=== PATIENT | female | born 1995 | race Caucasian/White ===

== ENCOUNTER 2017-09-19 20:57 | Emergency (ER) | payer OTHER ==
[2017-09-19 21:08] VITALS: RESP 18; TEMP 97.1
[2017-09-19] MEDS ORDERED: Sodium Chloride 0.9% 1,000 ML IV STA (21:16)
--- NOTE | 2017-09-19 21:21 | ED PDOC ---
Arrival/HPI - General Chief Complaint: Abdominal Pain Time Seen by Provider: 09/19/17 21:16 Historian: Patient - History of Present Illness Narrative History of Present Illness (Text): 09/19/17 21:17 22yo female who present with complaint of suprapubic abdominal pain x 2days. Stats pain is increasingly getting worse. Notes that she is currently 3months and sees OB. She denies nausea, vomiting, diarrhea, vaginal bleeding, urinary symptoms, fever. Past Medical History - Provider Review Nursing Documentation Reviewed: Yes - Psychiatric Hx Substance Use: No Family/Social History - Physician Review Nursing Documentation Reviewed: Yes Family/Social History: Unknown Family HX Smoking Status: Never Smoked Hx Alcohol Use: No Hx Substance Use: No Allergies/Home Meds Allergies/Adverse Reactions: Allergies No Known Allergies Allergy (Verified 09/19/17 21:08) Home Medications: Home Meds Medication Instructions Recorded Confirmed No Known Home Med 09/19/17 09/19/17 Review of Systems - Physician Review All systems were reviewed & negative as marked: Yes - Review of Systems Constitutional: Normal Eyes: Normal ENT: Normal Respiratory: Normal Cardiovascular: Normal Gastrointestinal: Abdominal Pain. absent: Constipation, Diarrhea, Nausea, Vomiting, Hematochezia, Hematemesis Genitourinary Female: Normal Musculoskeletal: Normal Skin: Normal Neurological: Normal Endocrine: Normal Hemo/Lymphatic: Normal Psychiatric: Normal Physical Exam Vital Signs Temp Pulse Resp BP Pulse Ox 09/19/17 23:40 97 H 18 126/82 100 09/19/17 21:03 97.1 F L 98 H 18 122/77 99 Temperature: Afebrile Blood Pressure: Normal Pulse: Regular Respiratory Rate: Normal Appearance: Positive for: Well-Appearing, Non-Toxic, Comfortable Pain Distress: None Mental Status: Positive for: Alert and Oriented X 3 - Systems Exam Head: Present: Atraumatic, Normocephalic Pupils: Present: PERRL Extroacular Muscles: Present: EOMI Conjunctiva: Present: Normal Mouth: Present: Moist Mucous Membranes Neck: Present: Normal Range of Motion Respiratory/Chest: Present: Clear to Auscultation, Good Air Exchange. No: Respiratory Distress, Accessory Muscle Use Cardiovascular: Present: Regular Rate and Rhythm, Normal S1, S2. No: Murmurs Abdomen: Present: Tenderness (Suprapubic tenderness), Normal Bowel Sounds, Other (soft). No: Distention, Peritoneal Signs, Rebound, Guarding, McBurney's Point Tender, Rovsing's Sign Present Back: Present: Normal Inspection Upper Extremity: Present: Normal Inspection. No: Cyanosis, Edema Lower Extremity: Present: Normal Inspection. No: Edema Neurological: Present: GCS=15, CN II-XII Intact, Speech Normal Skin: Present: Warm, Dry, Normal Color. No: Rashes Psychiatric: Present: Alert, Oriented x 3, Normal Insight, Normal Concentration Medical Decision Making ED Course and Treatment: 09/20/17 01:08 PT in ED for stated . She was not lethargic, hemodynamically stable. [place] [address].00 was noted Transvaginal US IMPRESSION: 1. Findings suspicious but not diagnostic of failure. Short-term sonographic followup is recommended. 2. RIGHT ovarian cyst. Result was DW both pt and the . The states pt have appointment with her OB on Thursday. A copy of her US and lab with beta was given. She was advised to f/u with the OB for a repeat beta. - Lab Interpretations Lab Results: 09/19/17 21:30 09/19/17 21:30 Lab Results 09/19/17 21:30: Beta HCG, Quant [id number] H 09/19/17 21:30: Sodium 142, Potassium 3.6, Chloride 103, Carbon Dioxide 24, Anion Gap 19, BUN 17, Creatinine 0.7, Est GFR ( Amer) > 60, Est GFR (Non- Af Amer) > 60, Random Glucose 95, Calcium 10.0, Total Bilirubin 0.2, AST 26, ALT 26, Alkaline Phosphatase 64, Total Protein 8.5 H, Albumin 4.5, Globulin 4.0 , Albumin/Globulin Ratio 1.1 09/19/17 21:30: Urine Color Yellow, Urine Appearance Clear, Urine pH 7.0, Ur Specific Dennis 1.020, Urine Protein Negative, Urine Glucose (UA) Negative, Urine Ketones Negative, Urine Blood Large H, Urine Nitrate Negative, Urine Bilirubin Negative, Urine Urobilinogen 0.2, Ur Leukocyte Esterase Trace H, Urine RBC 10 - 15, Urine WBC 1 - 3, Ur Epithelial Cells 4 - 5, Urine Bacteria Many, Urine Other Uyeast, Urine HCG, Qual Positive 09/19/17 21:30: PT 11.7, INR 1.03, APTT 32.0 09/19/17 21:30: WBC 12.6 H, RBC 4.34, Hgb 12.8, Hct 37.9, MCV 87.3, MCH 29.5, MCHC 33.8, RDW 13.8, Plt Count 270, MPV 11.6 H, Gran % 55.9, Lymph % (Auto) 35.9 H, Baldwin % (Auto) 6.3 H, Eos % (Auto) 1.5, Baso % (Auto) 0.4, Gran # 7.04 H , Lymph # (Auto) 4.5 H, Baldwin # (Auto) 0.8 H, Eos # (Auto) 0.2, Baso # (Auto) 0.05 - RAD Interpretation Radiology Orders: 09/19/17 22:25 OB TRANSVAGINAL [US] Stat - Medication Orders Current Medication Orders: Discontinued Medications Sodium Chloride (Sodium Chloride 0.9%) 1,000 mls @ 999 mls/hr IV .Q1H1M STA Stop: 09/19/17 22:16 Last Admin: 09/19/17 21:33 Dose: 999 mls/hr eMAR Start Stop Document 09/19/17 21:33 AD (Rec: 09/19/17 21:33 AD [id number]) Intravenous Solution Start Date 09/19/17 Start Time 21:33 Disposition/Present on Arrival - Present on Arrival Any Indicators Present on Arrival: No History of DVT/PE: No History of Uncontrolled Diabetes: No Urinary Catheter: No History of Decub. Ulcer: No History Surgical Site Infection Following: None - Disposition Have Diagnosis and Disposition been Completed?: Yes Diagnosis: Threatened Disposition: HOME/ ROUTINE Disposition Time: 11:25 Patient Plan: Discharge Condition: STABLE Discharge Instructions (ExitCare): Threatened Miscarriage Additional Instructions: Follow up with your OB in 48hrs for a repeat beta Return to ED for any new or worsening symptoms Referrals: Samanta Taylor MD [Primary Care Provider] - Follow up with primary Al Gottlieb MD [Staff Provider] - Follow up with primary Forms: [employer] (Ukrainian)
[2017-09-19 21:47] LABS: HCG,QUALITATIVE URINE POSITIVE (NEGATIVE); URINE BILIRUBIN NEGATIVE (NEGATIVE); URINE BLOOD LARGE (NEGATIVE); URINE GLUCOSE (UA) NEGATIVE (NEGATIVE); URINE LEUKOCYTE ESTERASE TRACE Leu/uL (NEGATIVE); URINE NITRATE NEGATIVE (NEGATIVE); URINE PROTEIN NEGATIVE mg/dL (<30 mg/dL); URINE UROBILINOGEN 0.2 E.U./dL (<1 E.U./dL)
[2017-09-19 21:48] LABS: URINE APPEARANCE CLEAR (CLEAR); URINE COLOR YELLOW (YELLOW)
[2017-09-19 21:49] LABS: BASO # 0.05 K/mm3 (0.0-2.0); BASO % 0.4 % (0.0-3.0); EOS # 0.2 (0.0-0.7); EOS % 1.5 % (1.5-5.0); GRAN # 7.04 (1.4-6.5); GRAN % 55.9 % (50.0-68.0); HEMOGLOBIN 12.8 g/dL (12.0-16.0); LYMPH # 4.5 (1.2-3.4); LYMPH % 35.9 % (22.0-35.0); MEAN CELL VOLUME 87.3 fl (80.0-105.0); MEAN CORPUSCULAR HEMOGLOBIN 29.5 pg (25.0-35.0); MEAN CORPUSCULAR HGB CONC 33.8 g/dl (31.0-37.0); MEAN PLATELET VOLUME 11.6 fl (7.0-11.0); MONO # 0.8 (0.1-0.6); MONO % 6.3 % (1.0-6.0); RBC 4.34 10^6/uL (3.5-6.1); RED CELL DISTRIBUTION WIDTH 13.8 % (11.5-14.5); WHITE BLOOD COUNT 12.6 10^3/ul (4.5-11.0)
[2017-09-19 21:55] LABS: URINE BACTERIA MANY (NEG)
[2017-09-19 21:57] LABS: INR 1.03 (0.93-1.08); PROTHROMBIN TIME 11.7 SECONDS (9.4-12.5)
[2017-09-19 22:00] LABS: ALB/GLOB RATIO 1.1 (1.1-1.8); ALBUMIN 4.5 g/dL (3.0-4.8); ALT/SGPT 26 U/L (7-56); AST/SGOT 26 U/L (14-36); BLOOD UREA NITROGEN 17 mg/dL (7-21); GFR AFRICAN-AMERICAN > 60; GFR NON-AFRICAN AMERICAN > 60
--- NOTE | 2017-09-19 23:21 | US ---
EXAM: US First Trimester, Transabdominal CLINICAL HISTORY: 22 years old, female; Signs and symptoms; Lmp or gestational age (in weeks): 06/14/17; Other: Pelvic pain; ; Additional info: Abdominal pain TECHNIQUE: Real-time transabdominal obstetrical ultrasound of the maternal pelvis and a first trimester with image documentation. COMPARISON: No relevant prior studies available. FINDINGS: Gestation: Gestational sac. Yolk sac. pole. No heartbeat detected. Wheeling-rump length of 0.5 cm, correlating with gestational age of 6 weeks 1 day. Mean sac diameter of 2.1 cm, correlating with gestational age of 6 weeks 4 days. Uterus/cervix: No subchorionic hemorrhage. No cervical dilatation or effacement. Ovaries: RIGHT ovary: 2.9 x 2.4 x 2.7 cm anechoic lesion. LEFT ovary: Normal. No adnexal masses. Free fluid: No significant free fluid. IMPRESSION: 1. Findings suspicious but not diagnostic of failure. Short-term sonographic followup is recommended. 2. RIGHT ovarian cyst. EXAM: US , Transvaginal CLINICAL HISTORY: 22 years old, female; Signs and symptoms; Lmp or gestational age (in weeks): 06/14/17; Other: Pelvic pain; ; Additional info: Abdominal pain TECHNIQUE: Real-time transvaginal obstetrical ultrasound of the maternal pelvis and a first trimester with image documentation. Transvaginal imaging was used for better evaluation of the fetus and adnexa. COMPARISON: No relevant prior studies available. FINDINGS: Gestation: Gestational sac. Yolk sac. pole. No heartbeat detected. Wheeling-rump length of 0.5 cm, correlating with gestational age of 6 weeks 1 day. Mean sac diameter of 2.1 cm, correlating with gestational age of 6 weeks 4 days. Uterus/cervix: No subchorionic hemorrhage. No cervical dilatation or effacement. Ovaries: RIGHT ovary: 2.9 x 2.4 x 2.7 cm anechoic lesion. LEFT ovary: Normal. No adnexal masses. Free fluid: No significant free fluid.
[2017-09-20 00:09] VITALS: BP 126/82; PULSE 97; O2SAT 100
== END 2017-09-19 23:45 | disposition home or self-care (01) ==
LOC: ED 20:57
DX: O20.0 Threatened abortion (principal); Z3A.01 Less than 8 weeks gestation of pregnancy
CPT/HCPCS: 76817; 80053; 81001; 84702; 84703; 85025; 85610; 85730; 99283; J7040

== ENCOUNTER 2018-06-20 01:57 | Emergency (ER) | payer OTHER ==
[2018-06-20 02:06] VITALS: BMI 29.1
[2018-06-20 02:07] VITALS: RESP 18; TEMP 98.7
--- NOTE | 2018-06-20 02:17 | ED PDOC ---
Arrival/HPI - General Chief Complaint: Headache Time Seen by Provider: 06/20/18 02:00 Historian: Patient - History of Present Illness Narrative History of Present Illness (Text): 06/20/18 02:16 Patricia Chou is a 23 year old female, whose past medical history includes anemia, currently 8 months , who presents to the emergency department complaining of right-sided headache for the past 3 days. Patient also reports 1 episode of epistaxis yesterday, which resolved on its own. Patient states she has not taken any medication for pain at home. Patient denies any dizziness, vision changes, focal deficits, nausea, vomiting, neck pain, back pain, abdominal pain, urinary symptoms, or any other complaints. Symptom Onset: Gradual Symptom Course: Unchanged Activities at Onset: Light Context: Home Past Medical History - Provider Review Nursing Documentation Reviewed: Yes - Infectious Disease Hx of Infectious Diseases: None - Hematological/Oncological Hx Anemia: Yes - Psychiatric Hx Substance Use: No Family/Social History - Physician Review Nursing Documentation Reviewed: Yes Family/Social History: Unknown Family HX Smoking Status: Never Smoked Hx Alcohol Use: No Hx Substance Use: No Allergies/Home Meds Allergies/Adverse Reactions: Allergies No Known Allergies Allergy (Verified 09/19/17 21:08) Home Medications: Home Meds Medication Instructions Recorded Confirmed No Known Home Med 09/19/17 06/20/18 Review of Systems - Physician Review All systems were reviewed & negative as marked: Yes - Review of Systems Constitutional: Normal. absent: Fevers Eyes: Normal ENT: Epistaxis Respiratory: Normal. absent: SOB Cardiovascular: Normal. absent: Chest Pain Gastrointestinal: Normal. absent: Abdominal Pain, Diarrhea, Nausea, Vomiting Genitourinary Female: Normal. absent: Dysuria, Frequency, Hematuria, Urine Output Changes Musculoskeletal: Normal. absent: Back Pain, Neck Pain Skin: Normal. absent: Rash Neurological: Headache. absent: Dizziness Endocrine: Normal Hemo/Lymphatic: Normal Psychiatric: Normal Physical Exam Vital Signs Reviewed: Yes Vital Signs Temp Pulse Resp BP Pulse Ox 06/20/18 02:06 98.7 F 103 H 18 107/65 97 Temperature: Afebrile Blood Pressure: Normal Pulse: Regular Respiratory Rate: Normal Appearance: Positive for: Well-Appearing, Non-Toxic, Comfortable Pain Distress: None Mental Status: Positive for: Alert and Oriented X 3 - Systems Exam Head: Present: Atraumatic, Normocephalic Pupils: Present: PERRL Extroacular Muscles: Present: EOMI Conjunctiva: Present: Normal Ears: Present: Normal, NORMAL TM, Normal Canal. No: Erythema, TM Bulging, Fluid, TM Perf Mouth: Present: Moist Mucous Membranes Pharnyx: Present: Normal. No: ERYTHEMA, EXUDATE, TONSILS ENLARGED, Peritonsilar Swelling, Uvular Deviation, Muffled/Hoarse Voice, Strider, Soft Palate/Uvular Edema Nose (External): Present: Atraumatic Nose (Internal): Present: Normal Inspection Neck: Present: Normal Range of Motion. No: Meningeal Signs, MIDLINE TENDERNESS, Paraspinal Tenderness Respiratory/Chest: Present: Clear to Auscultation, Good Air Exchange. No: Respiratory Distress, Accessory Muscle Use Cardiovascular: Present: Regular Rate and Rhythm, Normal S1, S2. No: Murmurs Abdomen: No: Tenderness, Distention, Peritoneal Signs Back: Present: Normal Inspection Upper Extremity: Present: Normal Inspection. No: Cyanosis, Edema Lower Extremity: Present: Normal Inspection. No: Edema Neurological: Present: GCS=15, CN II-XII Intact, Speech Normal Skin: Present: Warm, Dry, Normal Color. No: Rashes Psychiatric: Present: Alert, Oriented x 3, Normal Insight, Normal Concentration Medical Decision Making ED Course and Treatment: 06/20/18 02:16 Impression: 23 year old female complaining of headache x3 days. Plan: -- Tylenol -- Reassess and disposition Progress Notes: 06/20/18 03:05 On reevaluation the patient feels better and is in no acute distress. Patient is stable for discharge. Patient was instructed to follow up with physician/clinic in 1-2 days or return if symptoms persist/worsen or new concerning symptoms arise.. - Scribe Statement The provider has reviewed the documentation as recorded by the Scribe Asia Quesada All medical record entries made by the Scribe were at my direction and personally dictated by me. I have reviewed the chart and agree that the record accurately reflects my personal performance of the history, physical exam, medical decision making, and the department course for this patient. I have also personally directed, reviewed, and agree with the discharge instructions and disposition. Disposition/Present on Arrival - Present on Arrival Any Indicators Present on Arrival: No History of DVT/PE: No History of Uncontrolled Diabetes: No Urinary Catheter: No History of Decub. 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 (Guamanian)
[2018-06-20 03:07] VITALS: BP 106/63; PULSE 89; O2SAT 100
== END 2018-06-20 03:09 | disposition home or self-care (01) ==
LOC: ED 01:57
DX: O26.893 Other specified pregnancy related conditions, third trimester (principal); Z3A.32 32 weeks gestation of pregnancy; R51 Headache